=== PATIENT | female | born 2005 | race Two or more races ===

== ENCOUNTER 2024-03-08 14:08 | Emergency (ER) | payer OTHER ==
[~2024-03-08] VITALS: Ht 170.2 cm; Wt 86.0 kg
[2024-03-08 14:21] VITALS: BP 106/59; PULSE 85; RESP 16; TEMP 97.8; O2SAT 99
[2024-03-08] MEDS ORDERED: BUPR150T8 PO (16:41)
[2024-03-08] MEDS ORDERED: CITA10TA93 PO (16:44)
== END 2024-03-08 16:44 | disposition home or self-care (01) ==
LOC: ER 14:09
DX: Z00.00 Encounter for general adult medical examination without abnormal findings (principal); Z76.0 Encounter for issue of repeat prescription
CPT/HCPCS: 99281